=== PATIENT | female | born 1955 | race Caucasian/White ===

== ENCOUNTER → 2025-01-17 | Outpatient (CLI) | payer OTHER ==
--- NOTE | 2025-01-18 08:28 | BD ---
EXAMINATION TYPE: Axial Bone Density DATE OF EXAM: 01/17/2025 CLINICAL HISTORY: 69 years old Female. ICD-10 CODE: Z13.820 SCREENING FOR OSTEOPOROSIS , Additional History: Height: 72" Weight: 191lbs FRAX RISK QUESTIONS: Alcohol (3 or more units per day): No Family History (Parent hip fracture): No Glucocorticoids (More than 3mos): No (Ex: prednisone, prednisolone, methylprednisolone, dexamethasone, and hydrocortisone). History of Fracture in Adulthood: No Secondary Osteoporosis: 1. Type 1 Diabetes: No 2. Hyperthyroidism: No 3. 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 Malnutrition: No 5. Chronic liver disease: No Rheumatoid Arthritis: Current Tobacco Use: Yes RISK FACTORS HISTORY OF: Hip Fracture (Right/Left): No Spine Fracture: No History of Wrist Fracture: No Surgery to Spine/Hip(right/left)/Wrist (right/left): Left Hip, replaced twice most recently in 2014 MEDICATIONS: Thyroid Medications: No Osteoporosis Medications: No EXAM MEASUREMENTS: Bone mineral densitometry was performed using the [employer] System. Bone mineral density as measured about the Lumbar spine is: ----- L1-L4(G/cm2): 1.374 T Score Values are as follows: ----- L1: 0.8 ----- L2: 1.5 ----- L3: 1.9 ----- L4: 2.0 ----- L1-L4: 1.6 Z Score Values are as follows: ----- L1: 1.8 ----- L2: 2.4 ----- L3: 2.9 ----- L4: 2.9 ----- L1-L4: 2.6 Baseline @MPH Bone mineral density about the R hip (g/cm2): 1.009 T Score values are as follows: -----R Neck: -0.5 -----R Total: 0.0 Z Score values are as follows: -----R Neck: 0.7 -----R Total: 0.9 Baseline @MPH FRAX%s: The graph provided illustrates a 7.8% chance for a major osteoporotic fx and a 0.5% chance fo r the hips probability for fx in 10 years time. IMPRESSION: Normal (Values between +1 and -1 indicate normal bone mass). Consider repeating this study in 5 year s or sooner if there is some new clinical indication. NOTE: T-SCORE=SD OF THE YOUNG ADULT MEAN. [facility], , 01/18/2025 8:26 AM
== END | disposition home or self-care (01) ==
LOC: RADBDWWP 13:25
PROVIDERS: ATTEND Family Medicine
DX: Z13.820 Encounter for screening for osteoporosis (principal); M85.851 Other specified disorders of bone density and structure, right thigh
CPT/HCPCS: 77080